=== PATIENT | female | born 1985 | race Caucasian/White ===

== ENCOUNTER 2022-09-02 11:09 | Inpatient (IN) | payer MEDICAID ==
[2022-09-02] MEDS ORDERED: TUBERCULIN, PURIFIED PROTEIN DERIVATIVE 5 TU/0.1 ML SYRINGE ID ONE (12:00)
[2022-09-02] MEDS ORDERED: OLANZapine 5 MG RAPDIS TABLET PO PRN (12:00)
[2022-09-02] MEDS ORDERED: GuaiFENesin/D-METHORPHAN [SUGAR-FREE] 200-20MG/10 ML SYRUP UDCUP PO PRN (12:00)
[2022-09-02] MEDS ORDERED: ACETAMINOPHEN 325 MG TABLET PO PRN (12:00)
[2022-09-02] MEDS ORDERED: LORazepam 2 MG TABLET PO PRN (12:00)
[2022-09-02] MEDS ORDERED: HydrOXYzine PAMOATE 50 MG CAPSULE PO PRN (12:00)
[2022-09-02] MEDS ORDERED: MAG HYDROX/AL HYDROX/SIMETH ES 30 ML SUSPENSION UDCUP PO PRN (12:00)
[2022-09-02] MEDS ORDERED: ZOLPIDEM TARTRATE 10 MG TABLET PO PRN (12:00)
[2022-09-02] MEDS ORDERED: LOPERAMIDE HCL 2 MG CAPSULE PO PRN (12:00)
[2022-09-02] MEDS ORDERED: PROMETHAZINE HCL 25 MG TABLET PO PRN (12:00)
[2022-09-02] MEDS ORDERED: MAGNESIUM HYDROXIDE SUSPENSION 30 ML UDCUP PO PRN (12:00)
[2022-09-02] MEDS: THIAMINE 100 MG TABLET PO SCH (16:34)
[2022-09-02] MEDS: MELATONIN 5 MG TABLET PO SCH (20:56)
[2022-09-02] MEDS ORDERED: OLANZapine 5 MG RAPDIS TABLET PO SCH (21:00)
[2022-09-03] MEDS: MULTIVITAMINS WITH MINERALS, THERAPEUTIC TABLET PO SCH (08:31)
[2022-09-03] MEDS: FOLIC ACID 1 MG TABLET PO SCH (08:31)
[2022-09-03] MEDS: NALTREXONE HCL 50 MG TABLET PO SCH (08:31)
[2022-09-03] MEDS: THIAMINE 100 MG TABLET PO SCH ×2 (08:31→16:17)
[2022-09-03] MEDS: BuPROPion HCL XL 150 MG ER TABLET PO SCH (08:31)
[2022-09-03] MEDS: OMEGA-3/DHA/EPA/FISH OIL 1,000 MG CAPSULE PO SCH (08:31)
[2022-09-03] MEDS: MELATONIN 5 MG TABLET PO SCH (20:16)
[2022-09-03] MEDS: OLANZapine 10 MG RAPDIS TABLET PO SCH (20:16)
[2022-09-03 21:41] VITALS: BP 112/70
[2022-09-04 07:11] LABS: BASOPHILS % (AUTO) 0.3 % (0.0-2.0); EOSINOPHILS % (AUTO) 1.9 % (1.0-6.0); HEMATOCRIT 43.5 % (36-46); HEMOGLOBIN 14.7 g/dL (12.0-16.0); LYMPHOCYTES # (AUTO) 2.6 K/uL (1.0-4.8); LYMPHOCYTES % (AUTO) 32.7 % (22.0-44.0); MEAN CORPUSCULAR HEMOGLOBIN 30.6 pg (26.0-34.0); MEAN CORPUSCULAR HGB CONC 33.8 G/dL (31.0-37.0); MEAN CORPUSCULAR VOLUME 91 fL (80-100); MONOCYTES # (AUTO) 0.5 K/uL (0.1-1.0); MONOCYTES % (AUTO) 6.3 % (2.0-9.0); NEUTROPHILS # (AUTO) 4.6 K/uL (1.8-7.7); NEUTROPHILS % (AUTO) 58.8 % (40.0-70.0); PLATELET COUNT (AUTO) 280 K/uL (150-450); RED CELL DISTRIBUTION WIDTH 13.7 % (11.5-14.5)
[2022-09-04 07:29] LABS: HEMOGLOBIN A1C 5.3 % (3.8-5.6)
[2022-09-04 08:07] LABS: ALANINE AMINOTRANSFERASE 44 U/L (12-78); ALBUMIN 3.2 g/dL (3.4-5.0); ALKALINE PHOSPHATASE 50 U/L (46-116); ANION GAP 6 mmol/L (8-16); ASPARTATE AMINOTRANSFERASE 29 U/L (15-37); BILIRUBIN,TOTAL 0.2 mg/dL (0.1-1.0); CALCIUM, TOTAL 8.8 mg/dL (8.8-10.5); CARBON DIOXIDE 28 mmol/L (22-29); CHLORIDE 106 mmol/L (98-107); CHOL/HDL RATIO 2.6 (3.9-5.7); CHOLESTEROL 178 mg/dL (131-200); CREATININE 0.87 mg/dL (0.60-1.30); FREE T4 (FREE THYROXINE) 0.94 ng/dL (0.76-1.46); GLUCOSE,RANDOM 82 mg/dL (70-110); HDL CHOLESTEROL 69 mg/dL (40-60); LDL CHOL (CALC.) 90 mg/dL (0-130); POTASSIUM 3.4 mmol/L (3.5-5.1); SODIUM SERUM 140 mmol/L (136-145); THYROID STIMULATING HORMONE 0.32 uIU/mL (0.36-3.74); TOTAL PROTEIN, SERUM 6.7 g/dL (6.4-8.2); TRIGLYCERIDES 95 mg/dL (15-150); UREA NITROGEN, BLOOD 14 mg/dL (7-18)
[2022-09-04 08:08] VITALS: BP 110/66
[2022-09-04 08:09] LABS: GLOMERULAR FILTR. RATE CALC > 60 mL/min (>60)
[2022-09-04] MEDS: BuPROPion HCL XL 150 MG ER TABLET PO SCH (09:32)
[2022-09-04] MEDS: NALTREXONE HCL 50 MG TABLET PO SCH (09:32)
[2022-09-04] MEDS: MULTIVITAMINS WITH MINERALS, THERAPEUTIC TABLET PO SCH (09:32)
[2022-09-04] MEDS: DEXTROMETHORPHAN HBR/QUINIDINE 20/10 MG CAPSULE PO SCH (09:32)
[2022-09-04] MEDS: FOLIC ACID 1 MG TABLET PO SCH (09:33)
[2022-09-04] MEDS: OMEGA-3/DHA/EPA/FISH OIL 1,000 MG CAPSULE PO SCH (09:33)
[2022-09-04] MEDS: THIAMINE 100 MG TABLET PO SCH ×2 (09:33→16:23)
[2022-09-04] MEDS ORDERED: POTASSIUM CHLORIDE 20 MEQ ER TABLET PO ONE (13:30)
[2022-09-04] MEDS ORDERED: MELA5TAB40 PO (14:43)
[2022-09-04] MEDS ORDERED: NALT50TA PO (14:43)
[2022-09-04] MEDS ORDERED: BUPR-49 PO (14:43)
[2022-09-04] MEDS ORDERED: OMEG-135 PO (14:43)
[2022-09-04] MEDS ORDERED: OLAN10TA26 PO (14:43)
[2022-09-04] MEDS ORDERED: DEXT1CAP3 PO (14:43)
[2022-09-04 15:39] LABS: RAPID PLASMA REAGIN NONREACTIVE (NONREACTIVE)
[2022-09-04] MEDS: MELATONIN 5 MG TABLET PO SCH (20:23)
[2022-09-04] MEDS: OLANZapine 10 MG RAPDIS TABLET PO SCH (20:23)
[2022-09-04 20:30] VITALS: BP 127/76
[2022-09-05 08:10] VITALS: BP 100/63
[2022-09-05] MEDS: THIAMINE 100 MG TABLET PO SCH (08:14)
[2022-09-05] MEDS: MULTIVITAMINS WITH MINERALS, THERAPEUTIC TABLET PO SCH (08:14)
[2022-09-05] MEDS: NALTREXONE HCL 50 MG TABLET PO SCH (08:14)
[2022-09-05] MEDS: DEXTROMETHORPHAN HBR/QUINIDINE 20/10 MG CAPSULE PO SCH (08:14)
[2022-09-05] MEDS: FOLIC ACID 1 MG TABLET PO SCH (08:15)
[2022-09-05] MEDS: OMEGA-3/DHA/EPA/FISH OIL 1,000 MG CAPSULE PO SCH (08:15)
[2022-09-05] MEDS ORDERED: BuPROPion HCL XL 150 MG ER TABLET PO SCH (09:00)
[2022-09-05] MEDS ORDERED: BUPR-49 PO (19:14)
[2022-09-05] MEDS ORDERED: NALT50TA PO (19:14)
[2022-09-05] MEDS ORDERED: MELA5TAB40 PO (19:14)
[2022-09-05] MEDS ORDERED: OMEG-135 PO (19:14)
[2022-09-05] MEDS ORDERED: OLAN10TA26 PO (19:14)
[2022-09-05] MEDS ORDERED: DEXT1CAP3 PO (19:14)
[2022-09-07 18:06] LABS: HEPATITIS C AB (EIA) >11.0 s/co ratio (0.0-0.9); HEPATITIS C RT-PCR,QNT 472000 IU/mL
== END 2022-09-05 12:44 | disposition home or self-care (01) | DRG 750 ==
LOC: B3A 13:01
PROVIDERS: ADMIT Psychiatry & Neurology Psychiatry; ATTEND Psychiatry & Neurology Psychiatry
DX: F25.9 Schizoaffective disorder, unspecified (principal); B19.20 Unspecified viral hepatitis C without hepatic coma; J44.9 Chronic obstructive pulmonary disease, unspecified; Z20.822 Contact with and (suspected) exposure to COVID-19; Z65.3 Problems related to other legal circumstances; Z55.9 Problems related to education and literacy, unspecified; Z63.9 Problem related to primary support group, unspecified; Z59.9 Problem related to housing and economic circumstances, unspecified
CPT/HCPCS: 80053; 80061; 80074; 82105; 83036; 84439; 84443; 84703; 85025; 86592; 87522; Q9967